=== PATIENT | female | born 1935 | race Caucasian/White ===

== ENCOUNTER 2020-12-13 00:11 | Inpatient (IN) | payer OTHER ==
[~2020-12-13] VITALS: Ht 149.9 cm; Wt 62.1 kg
[2020-12-13] VITALS (7 sets, daily range): BP systolic 113–154; BP diastolic 39–127
--- NOTE | ~2020-12-13 | O ---
[facility] [place] [address] OPERATIVE REPORT Name: JAXON LOVELL Room #: 450-P [facility] IN M.R.#: [id number] Admission: 12/13/20 Attend Phys: Joao Robison, Discharge: Date of : 36 Report #: [id number] THIS REPORT FOR: cc: FAM - Family physician unknown FAM - Family physician unknown Christopher Turcios MD ~ DOC #: [id number] Christopher Turcios MD DATE OF SERVICE: 12/14/2020 PREOPERATIVE DIAGNOSIS: Right hip intertrochanteric fracture. POSTOPERATIVE DIAGNOSIS: Right hip intertrochanteric fracture. PROCEDURE: Right hip intramedullary nail. SURGEON: Christopher Turcios MD INSTALL AND REPAIR TECHNICIAN: Socorro Miller NP ANESTHESIA: General. ESTIMATED BLOOD LOSS: 50 mL. DRAINS: None. TOURNIQUETS: None. COMPLICATIONS: None. DESCRIPTION OF PROCEDURE: The patient was brought to the operating room, where she was placed under general anesthesia. Once under adequate general anesthesia, she was then placed onto the fracture table. The extremity was placed into internal rotation somewhat as well as distraction and the fracture was then aligned as verified under fluoroscopy. The right hip was then prepped and draped in a sterile manner. A 2 cm incision proximal to the tip of the greater trochanter was then made with sharp dissection directly down to the tip of the greater trochanter. A curved cannulated awl was then placed into the proximal femur and the guide franky for the nail was placed. A 10 mm intramedullary nail was placed from the Synthes trochanteric femoral nail system. Utilizing the outrigger jig, a lateral incision for the blade was then placed. The cortex was opened laterally and the guidewire was placed. The cortex was opened laterally and a blade measured 85 mm from the guide was then placed over the guidewire into a center-center position in the femoral head. This was then fixed into place proximally with the proximal locking screw. Excellent fixation was achieved and excellent alignment. A small distal lateral [facility] [address] [place] [address] OPERATIVE REPORT Name: JAXON LOVELL Room #: 450-P [facility] IN M.R.#: [id number] Admission: 12/13/20 Attend Phys: Joao Robison, Discharge: Date of : 36 Report #: [id number] incision through the ____ jig was then made as well and a 34 mm screw was placed across the distal nail. Excellent fixation and alignment was achieved as verified under fluoroscopy. The wounds were irrigated copiously and closed with 2-0 Vicryl in deep subcutaneous tissues and nhan were used for the skin. The wounds were dressed with Xeroform, 4 x 4's, and a sterile soft compressive dressing was placed. There were no complications from the procedure. The patient tolerated the procedure well and was to the recovery room without incident. MD MEL Giraldo/JOHNNIE/FLAQUITO By: 1212 1239 Christopher Turcios MD /nt
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
[2020-12-13 00:46] LABS: HEMATOCRIT 37.4 % (37.0-47.0); HEMOGLOBIN 12.3 gm/dL (12.0-15.0); MCHC 32.8 g/dL (28.0-37.0); MCV 85.3 fL (80.0-100.0); RBC 4.38 mil/uL (4.20-5.00); RDW 13.9 % (10.5-14.5); WBC 7.8 thou/uL (4.0-11.0)
[2020-12-13 00:49] LABS: CALCIUM 8.9 mg/dL (8.5-10.1); CREATININE 0.9 mg/dL (0.6-1.0); POTASSIUM 3.4 mmol/L (3.5-5.1)
[2020-12-13 00:55] LABS: ALBUMIN 3.4 g/dL (3.4-5.0); TOTAL BILIRUBIN 0.5 mg/dL (0.2-1.0); TOTAL PROTEIN 6.5 g/dL (6.4-8.2)
--- NOTE | 2020-12-13 01:49 | NUR ---
IN PATIENT ROOM TO GIVE MORPHINE MEDICATION, NOTICED THAT PATIENTS RESPIRATIONS WERE WERE 5, INSTRUCTED PATIENT TO TAKE SOME DEEP BREATHS, RESPIRATION RATE CAME UP TO 10. HR DROPPED TO 40 AND CALLED PROVIDER INTO ROOM. HR WENT BACK UP TO 52. PT REPOSITIONED IN BED WITH PROVIDER, PT HR DROPPED TO 32, AND PT STATED THAT SHE FELT LIKE HER THROAT WAS CLOSING, PLACED ON NRB. EKG DONE WITH PROVIDER AT BEDSIDE. PT STATED TO RN THAT SHE NEEDS HER DAUGHTER HERE BECAUSE SHE IS GOING TO TONIGHT. PT STABILIZED ON NC.
--- NOTE | 2020-12-13 04:19 | NUR ---
PT ARRIVED ON UNIT FROM ER AT 0215. [facility] WHERE SHE FELL FRACTURING HER RIGHT HIP. FERRER PLACED. MORPHINE GIVEN FOR PAIN. ZOFRAN FOR NAUSEA. ORTHO CONSULTED. CALL LIGHT WITHIN REACH. FREQUENT OBSERVATION.
[2020-12-13] MEDS ORDERED: COLACE100 MG PO (09:35)
[2020-12-13] MEDS ORDERED: MIRTAZAPINE7.5 MG PO (09:36)
[2020-12-13] MEDS ORDERED: NEURONTIN300 MG PO (09:37)
[2020-12-13] MEDS ORDERED: LIPITOR80 MG PO (09:37)
[2020-12-13] MEDS ORDERED: NORVASC10 MG PO (09:38)
[2020-12-13] MEDS ORDERED: LISINOPRIL20 MG PO (09:40)
[2020-12-13] MEDS ORDERED: ELIQUIS5 MG PO (09:40)
[2020-12-13] MEDS ORDERED: OMEPRAZOLE 20 M20 M1 PO (09:42)
[2020-12-13] MEDS ORDERED: FLONASE 0.05%50 MCG NASAL (09:43)
[2020-12-13] MEDS ORDERED: SERTRALINE HCL100 MG PO (09:44)
[2020-12-13] MEDS ORDERED: CATAPRES0.2 MG PO (09:46)
[2020-12-13] MEDS ORDERED: ADVAIR 250-501 EACH INH (09:48)
[2020-12-13] MEDS ORDERED: ASA81BEC PO (09:49)
[2020-12-13] MEDS ORDERED: ALPRAZOLAM XR3 MG PO (09:49)
[2020-12-13] MEDS ORDERED: TYLENOL325 M1 PO (09:51)
[2020-12-13] MEDS ORDERED: IMODIUM A-D2 MG PO (09:54)
[2020-12-13] MEDS ORDERED: LEVO-T75 MCG PO (09:55)
[2020-12-13] MEDS ORDERED: MYLANTA MAXIMU355 ML PO (09:57)
--- NOTE | 2020-12-13 09:58 | 2DMMODE ---
[facility] [place] [address] 2 D/M-MODE ECHOCARDIOGRAM Name: JAXON LOVELL Room #: 450-P ADM IN M.R.#: [id number] Admission: 12/13/20 Attend Phys: Joao Robison, Discharge: Date of : 36 Report #: [id number] THIS REPORT FOR: cc: FAM - Family physician unknown FAM - Family physician unknown Alex Singh MD [facility] ~ APPROVED REPORT Study performed: 12/13/2020 09:11:01 EXAM: Comprehensive 2D, Doppler, and color-flow Echocardiogram Patient Location: Bedside Room #: 450 Status: routine BSA: 1.57 HR: 58 bpm BP: 130/50 mmHg Rhythm: NSR Other Information Study Quality: Adequate Indications Pre-Op clearance. Hx: GA, stent, CVA, HTN, HLP. 2D Dimensions RVDd: 28.53 mm IVSd: 10.47 (7-11mm) LVOT Diam: 19.11 (18-24mm) LVDd: 47.54 mm PWd: 9.58 (7-11mm) Ascending Ao: 29.62 (22-36mm) LVDs: 27.02 (25-40mm) Left Atrium: 33.23 (27-40mm) Aortic Root: 32.69 mm Volumes Left Atrial Volume (Systole) Single Plane 4CH: 27.09 mL Single Plane 2CH: 41.11 mL LA ESV Index: 24.00 mL/m2 Aortic Valve AoV Peak Pawel.: 1.71 m/s AO Peak Gr.: 11.70 mmHg LVOT Max P.20 mmHg LVOT Max V: 1.34 m/s [facility] [address] [place] [address] 2 D/M-MODE ECHOCARDIOGRAM Name: JAXON LOVELL Room #: 450-P [facility] IN ..#: [id number] Admission: 12/13/20 Attend Phys: Joao Castellon Discharge: Date of : 36 Report #: [id number] SOHAIL Vmax: 2.25 cm2 Mitral Valve E/A Ratio: 0.5 MV Decel. Time: 289.71 ms MV E Max Pawel.: 0.60 m/s MV A Pawel.: 1.20 m/s MV PHT: 84.02 ms IVRT: 87.66 ms Pulmonary Valve PV Peak Pawel.: 1.28 m/s PV Peak Gr.: 6.57 mmHg Pulmonary Vein P Vein S: 0.44 m/s P Vein A: 0.40 m/s P Vein D: 0.21 m/s P Vein A Dur.: 133.8 msec P Vein S/D Ratio: 2.10 Tricuspid Valve TR Peak Pawel.: 2.54 m/s RAP Estimate: 5.00 mmHg TR Peak Gr.: 26.00 mmHg PA Pressure: 31.00 mmHg Left Ventricle The left ventricle is normal size. There is normal LV segmental wall motion. There is normal left ventricular wall thickness. Left ventricular systolic function is normal. LVEF is 65%. Mild diastolic dysfunction is present (impaired relaxation pattern). Right Ventricle The right ventricle is normal size. The right ventricular systolic function is normal. Atria The left atrium size is normal. The right atrium size is normal. Aortic Valve The aortic valve is normal in structure; mildly calcifed. No aortic regurgitation is present. There is no aortic valvular stenosis. Mitral Valve The mitral valve is normal in structure. Trace mitral regurgitation. [facility] [address] [address] 2 D/M-MODE ECHOCARDIOGRAM Name: JAXON LOVELL Room #: 450-P [facility] IN M.R.#: [id number] Admission: 12/13/20 Attend Phys: Joao Castellon Discharge: Date of : 36 Report #: [id number] Tricuspid Valve The tricuspid valve is normal in structure. Trace tricuspid regurgitation. Estimated PAP is 30mmHg. Pulmonic Valve The pulmonary valve is normal in structure. Trace pulmonic regurgitation. Great Vessels The aortic root is normal in size. The ascending aorta is normal in size. IVC is normal in size and collapses >50% with inspiration. Pericardium There is no pericardial effusion. <Conclusion> Normal left ventricular size/wall thickness Ejection fraction 60-65% Grade 1 diastolic dysfunction Normal right ventricular size/function Normal atrial size Color-flow Doppler study was performed of the aortic/mitral/tricuspid/pulmonary valve Aortic valve mildly calcified without stenosis Normal mitral valve structure and function Trace tricuspid valve insufficiency Pulmonary systolic pressure estimated 30 mmHg Normal aortic root size No pericardial effusion <ELECTRONICALLY SIGNED> By: Alex Singh MD, FACC 12/13/2058 7 7 Alex Singh MD, FACC /INF
--- NOTE | 2020-12-13 12:34 | EKG ---
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
--- NOTE | 2020-12-13 12:37 | NUR ---
RN agrees with WASHERY ENGINEER assessment.
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
--- NOTE | 2020-12-13 14:35 | NUR ---
ASSUMED CARE OF PATIENT AT SHIFT CHANGE; APPROX 0700. ASSESSMENT CHARTED. MEDICATIONS ADMINISTERED PER EMAR. VSS. PATIENT IS A&OX4 WITH OCCASIONAL FORGETFULNESS; BARELY NOTICED THIS SHIFT. PATIENT IS ON BEDREST NOW FOR A RT HIP FRACTURE; PAINFUL. REPOSITIONING OFFERED BUT REFUSED DUE TO PAIN. PATIENT ON SEVERAL PRN ANALGESICS (SEE MAR), PROVIDING SOME RELIEF. SCD'S ON. PATIENT BACK ON REGULAR DIET ABD EXPECTED TO BE NPO POAT MIDNIGHT. SURGERY SCHEDULED THIS DAY WAS RESCHEDULED PER CARDIOLOGY; LAST DOSE OF BLOOD THINNER ADMINISTERED ON 12/12/20 AT APPROX 1600. FAMILY AT BEDSIDE. PATIENT VOICING NO FORTHER NEEDS. WILL CONTINUE TO MONITOR AND FOLLOW CARE PLAN
[2020-12-14 05:01] LABS: HEMATOCRIT 29.8 % (37.0-47.0); MCH 28.5 pg (26.0-34.0); MCHC 33.2 g/dL (28.0-37.0); MCV 86.1 fL (80.0-100.0); RBC 3.47 mil/uL (4.20-5.00); WBC 6.6 thou/uL (4.0-11.0)
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
[2020-12-14 05:54] LABS: CALCIUM 8.3 mg/dL (8.5-10.1); CREATININE 0.8 mg/dL (0.6-1.0); HEMOGLOBIN 9.9 gm/dL (12.0-15.0); POTASSIUM 3.4 mmol/L (3.5-5.1)
[2020-12-14 07:52] VITALS: BP 142/55
--- NOTE | 2020-12-14 12:19 | NUR ---
ASSUMED CARE OF THE PT THIS MORNING. PT IS A/O X4 AND ADMITTED FOR RIGHT HIP FX. PT IS SCHEDULED FOR SURGERY TODAY. SKIN IS INTACT W/D/P, NO TENTING NOTED AND CR<3SEC X4, LUNGS ARE WHEEZING AND DIMINISHED ON LOWER LOBES. DISTAL PULSES ARE PRESENT AT BILAT FEET.ABD-SOFT NONTENDER. IV IN LEFT WRIST. RIGHT LEG IS EXTERNALLY ROTATED. ASSESSMENTS OTHERWISE UNREMARKABLE. PT IS NPO UNTIL AFTER PROCEDURE. CALL LIGHT AND OTHER NEEDS ARE WITHIN REACH. MEDS AND TX'S GIVEN SCHEDULED.
--- NOTE | 2020-12-14 13:47 | NUR ---
PT HAD RIGHT HIP IM NAILING THIS AFTERNOON BY DR. AGGARWAL. CM SPOKE WITH JESI IN ADMISSIONS AT [facility] PT RESIDES THERE IN [place] AND IS INTERESTED IN GOING THERE FOR SHORT TERM SKILLED STAY AT [facility] ONCE MEDICALLY STABLE. CM FAXED CLINICAL INFO OVER. THERAPY WILL NEED TO BE ORDERED POST SURGRY TO EVAL. CM FOLLOWING REGARDING DC PLANNING.
[2020-12-14 14:03] VITALS: BP 140/54
[2020-12-14 15:15] VITALS: BP 135/52
[2020-12-14 20:28] VITALS: BP 118/69
[2020-12-15 00:48] VITALS: BP 119/54
--- NOTE | 2020-12-15 04:07 | NUR ---
PATIENT AOX2 CONFUSED AND FORGETFUL. PATIENT HAD RIGHT HIP FX AFTER A FALL. PATIENT DENIED PAIN OR DISCOMFORT. DRESSING ON RIGHT HIP IS C/D/I. PATIENT ON 2L OF OXYGEN NO SOA OR DISTESS NOTED THIS SHIFT. ICE PACK GIVEN X3 THIS SHIFT TO THE RIGHT HIP. FALL PRECAUTION IN PLACE. PATIENT IN BED ASLEEP AT THIS TIME BREATHING REGULAR AND UNLABOURED.
[2020-12-15 04:21] VITALS: BP 139/57
[2020-12-15 07:10] VITALS: BP 136/60
--- NOTE | 2020-12-15 11:57 | NUR ---
Assumed pt care at 7am.Pt in bed sleeping at the start of shift but arousable. Rn woke pt up for am care and breakfast.Ot transfered pt to chair.Assisted with tray setup. Good appetite noted.Pt tolerated am meds. Miralax given for constipation but no bm yet.Ofelia SUTURE WINDER HAND here,order noted.Dr Zavaleta rounded on pt later this am additional order noted.Pt will have regular diet for lunch. Received call from war room that pt hr was in asystole for brief seconds. Rn checked on pt but HR was in mid 50's without c/o chest pain.Pt in chair resting and watching tv.Will continue to monitor.
--- NOTE | 2020-12-15 12:25 | NUR ---
PT IS POD#1 RIGHT IM HIP NAILING. PT AND OT WORKED WITH PT. CM FAXED THERAPY EVALS AND UPDATED PROGRESS NOTES TO [facility]. CM FOLLOWING REGARDING DC PLANNING.
[2020-12-15 13:18] LABS: HEMATOCRIT 27.4 % (37.0-47.0); HEMOGLOBIN 9.4 gm/dL (12.0-15.0); MCH 29.4 pg (26.0-34.0); MCHC 34.3 g/dL (28.0-37.0); MCV 85.6 fL (80.0-100.0); RBC 3.2 mil/uL (4.20-5.00); RDW 14.1 % (10.5-14.5); WBC 9.6 thou/uL (4.0-11.0)
[2020-12-15 13:44] LABS: ALBUMIN 2.9 g/dL (3.4-5.0); CREATININE 0.8 mg/dL (0.6-1.0); PHOSPHORUS 3.2 mg/dL (2.5-4.9); POTASSIUM 3.2 mmol/L (3.5-5.1)
[2020-12-15 13:54] LABS: CALCIUM 8.4 mg/dL (8.5-10.1)
[2020-12-15 14:19] VITALS: BP 117/55
[2020-12-15 19:57] VITALS: BP 137/64
--- NOTE | 2020-12-16 04:30 | NUR ---
no issues with pt at shift change. no c/o pain or discomfort.pt in bed thru noc with eyes closed. iv saline lock. urbina patent urine yellow clear no odor noted.
[2020-12-16 05:55] LABS: HEMATOCRIT 25.2 % (37.0-47.0); HEMOGLOBIN 8.3 gm/dL (12.0-15.0); MCH 28.5 pg (26.0-34.0); MCV 86.1 fL (80.0-100.0); RBC 2.92 mil/uL (4.20-5.00); RDW 13.8 % (10.5-14.5); WBC 7.7 thou/uL (4.0-11.0)
[2020-12-16 06:20] LABS: CREATININE 0.7 mg/dL (0.6-1.0); POTASSIUM 3.7 mmol/L (3.5-5.1)
[2020-12-16 06:42] VITALS: BP 134/59
[2020-12-16 08:17] VITALS: BP 134/54
--- NOTE | 2020-12-16 11:37 | NUR ---
CM FAXED THERAPY NOTES AND PROGNOTES TO [facility]. CM SPOKE WITH JESI IN ADMISSIONS AND SHE INDICATED THAT SHE HAD SUBMITTED AUTH YESTERDAY AND IT HAD BEEN RECEIVED. THEY HAVE AUTH TO ACCEPT PT ONCE MEDICALLY STABLE. ANTICPATE DC TO [facility] SKILLED TOMORROW. CM NOTIFIED PT AND DTR.
--- NOTE | 2020-12-16 13:46 | NUR ---
Assumed pt care at 7am.Pt in bed resting and very tired.Assessment completed. vss. Pt was tearful when OT came to assist her with adl's this morning. Pain shot given with partial relief.Pt transfered to chair for breakfast.Additonal po pain med given per pt request after 2hrs of iv shot.Pt will be dc to [facility] in am per cm report.No further c/o at present .Will continue to monitor.
[2020-12-16 16:13] VITALS: BP 137/58
[2020-12-16 19:37] VITALS: BP 146/57
--- NOTE | 2020-12-17 04:19 | NUR ---
ASSUMED T CARE AT 1900.PT ALERT/CONFUSED AND FORGETFUL.PT PULLED THE DRSG TO HER R HIP OFF,DRSG CHANGES DONE.C/D/I.PT CONT ON 2L/NC.SCD AND FALL PRECAUTIONS IN PLACE.FERRER CATH TO DD.PT C/O PAIN TO HER HIP,MANAGED WITH MED.PT SLEEPING ON HER BED AT THIS TIME.CALL LIGHT WITHIN REACH.
[2020-12-17 07:00] VITALS: BP 146/53
[2020-12-17] MEDS ORDERED: NORCO7.5 PO (08:05)
[2020-12-17 08:16] VITALS: BP 146/53
--- NOTE | 2020-12-17 10:34 | NUR ---
ASSUMED PT CARE THIS AM. PT IS ALERT & ORIENTED X3 BUT FORGETFUL AT TIMES. PT HAD R HIP IM NAILING. PT UP WITH ASSIST X1 ABD USES BSC. PT HAS IV SITE ON L FA SALINE LOCKED. PT ON TELE MONITOR ON. PT HAS O2 NC. PT STATED SHE USES WALKER AT HOME. PT C/O OF PAIN THIS AM AND GIVEN PAIN MEDICATION. PT DENIES NAUSEA AND VOMITING. PT ON THE BED, BED ON THE LOWEST POSITION, SIDE RAILS UP, CALL LIGHT WITHIN REACH. WILL CONTINUE TO MONITOR PT. FOLLOW POC.
--- NOTE | 2020-12-17 11:46 | NUR ---
CARE TEAM INDICATED THAT PT IS MEDICALLY STABLE TO DC TO SKILLED AT [facility] THIS DAY. WE HAVE INSURANCE AUTH. [facility]AN TRANSPORT ARRANGED FOR 1430. PT AND DTR KIANA ARE AWARE AND AGREEABLE. CHART COPY MADE. ORDERS FAXED. NURSE GIVEN NUMBER FOR REPORT. NO OTHER CM INTERVENTION INDICATED. CASE CLOSED.
== END 2020-12-17 14:53 | DRG 481 ==
LOC: ER 00:11 → 4W 01:24 → EROBS 01:24 → 4W 02:18
PROVIDERS: Hospitalist; Internal Medicine; Nurse Practitioner Family; Student in an Organized Health Care Education/Training Program; Surgery; ADMIT Surgery; ATTEND Surgery
PROC: 0QH606Z Insertion of Intramedullary Internal Fixation Device into Right Upper Femur, Open Approach (ICD-10-PCS; principal; 2020-12-14)
DX: S72.141A Displaced intertrochanteric fracture of right femur, initial encounter for closed fracture (principal); D62 Acute posthemorrhagic anemia; E78.5 Hyperlipidemia, unspecified; K21.9 Gastro-esophageal reflux disease without esophagitis; I10 Essential (primary) hypertension; I71.4 Abdominal aortic aneurysm, without rupture; F41.9 Anxiety disorder, unspecified; I25.10 Atherosclerotic heart disease of native coronary artery without angina pectoris; Z60.2 Problems related to living alone; R53.81 Other malaise; K59.00 Constipation, unspecified; F32.9 Major depressive disorder, single episode, unspecified; Z20.822 Contact with and (suspected) exposure to COVID-19; Z95.5 Presence of coronary angioplasty implant and graft; Z86.73 Personal history of transient ischemic attack (TIA), and cerebral infarction without residual deficits; I25.2 Old myocardial infarction; W18.39XA Other fall on same level, initial encounter; Y93.89 Activity, other specified; Y92.89 Other specified places as the place of occurrence of the external cause; Y99.8 Other external cause status
CPT/HCPCS: 10045; 10047; 50010; 50101; 50386; 50635; 51412; 51538; 52304; 56524; 57092; 5736; 5743; 57901; 62110; 62900; 70005